=== PATIENT | female | born 1980 | race African-American/Black ===

== ENCOUNTER 2016-11-06 10:16 | Emergency (ER) | payer MEDICAID ==
[~2016-11-06] VITALS: Ht 175.3 cm; Wt 74.8 kg
[~2016-11-06 10:16] MED LIST: ALBUTEROL SULF8.5 GM INH; AMOXICILLIN500 M1 PO; CLINDAMYCIN HC150 MG ORAL; CLINDAMYCIN HC300 MG PO; CODEINE 30MG TA30 MG PO; CYCLOBENZAPRINE10 MG ORAL; DIPHENHYDRAMINE25 M1 ORAL; IBUPROFEN600 MG ORAL; NORCO 5-325 TA1 EACH ORAL; SILVADENE CREAM50 GM TOP; VICODIN 5-5001 EACH PO; ZOFRAN8 MG PO
[2016-11-06] MEDS ORDERED: NKM (10:34)
[2016-11-06 10:58] VITALS: BP 119/63
[2016-11-06] MEDS ORDERED: PREDNISONE20 MG ORAL (11:06)
[2016-11-06] MEDS ORDERED: ZYRTEC10 MG ORAL (11:06)
[2016-11-06] MEDS ORDERED: BACTRIM DS TAB1 EAC1 ORAL (11:06)
--- NOTE | 2016-11-06 11:20 | Emergency Room Report ---
History of Present Illness General Chief Complaint: General Complaint Source: Patient Present Illness HPI Patient presents with complaints of rash She feels that she was bit by bedbugs She feels that she saw the insects in the bed This happened on initially Patient has noticed increased redness on the left upper thigh Other insect bites are localized to the right leg and upper arms Denies any chest pressures of breath denies any dysuria frequency Denies any bodyaches Allergies: Coded Allergies: PENICILLINS (Verified Allergy, Mild, Hives, 04/15/12) Patient History Past Medical History: see triage record Pertinent Family History: none Last Menstrual Period: 10/19/15 Now: No Reviewed Nursing Documentation: PMH: Agreed, PSxH: Agreed Nursing Documentation-PMH Hx Hypertension: No - sciatica Review of Systems All Other Systems: negative except mentioned in HPI Physical Exam Vital Signs Date Time Temp Pulse Resp B/P Pulse Ox O2 Delivery O2 Flow Rate FiO2 11/06/16 10:28 98.6 72 16 113/67 99 Room Air Sp02 EP Interpretation: reviewed, normal General Appearance: well appearing, no apparent distress Head: normocephalic, atraumatic Eyes: bilateral eye EOMI, bilateral eye PERRL ENT: hearing grossly normal, normal pharynx Neck: full range of motion, supple Respiratory: lungs clear, normal breath sounds, no rhonchi Cardiovascular #1: regular rate, rhythm Gastrointestinal: non tender, soft Musculoskeletal: normal inspection Neurologic: alert, oriented x3, responsive Skin: other - Several areas of small raised erythematous lesions, specifically with area of erythema on the left upper thigh, with surrounding mild erythema which appears to be early cellulitis, no obvious streaking Lymphatic: no adenopathy Medical Decision Making Diagnostic Impression: Primary Impression: insect bite Additional Impression: cellulitis ER Course Also the areas appear to be fairly well localized however the area on the left upper thigh does appear to have secondary cellulitis Patient does not appear systemic does not appear septic or toxic and will be initially trialed on oral antibiotics Last Vital Signs Date Time Temp Pulse Resp B/P Pulse Ox O2 Delivery O2 Flow Rate FiO2 11/06/16 10:58 98.1 72 18 119/63 98 Room Air Status: unchanged Disposition: HOME, SELF-CARE Condition: Stable Scripts Cetirizine Hcl* (ZYRTEC*) 10 Mg Tablet 10 MG ORAL DAILY, #12 TAB 0 Refills Prov: STEVE WEN D.O. 11/06/16 Prednisone* (PREDNISONE*) 20 Mg Tablet 20 MG ORAL BID, #6 TAB Prov: STEVE WEN D.O. 11/06/16 Trimethoprim/Sulfamethoxazole 160/800* (BACTRIM DS TABLET*) 1 Each Tablet 1 TAB ORAL Q12H, #14 TAB 0 Refills Prov: STEVE WEN D.O. 11/06/16 Referrals: [facility],REFERRING (PCP) Patient Instructions: Cellulitis, [id number], Insect Bite, [id number] Additional Instructions: Patient is provided with the discharge instructions notified to follow up with primary doctor in the next 2-3 days otherwise return to the er with any worsening symptoms. Please note that this report is being documented using [employer] technology. This can lead to erroneous entry secondary to incorrect interpretation by the dictating instrument. STEVE WEN D.O. Nov 06, 2016 11:20
[2016-11-06 11:24] VITALS: BP 98/60
== END 2016-11-06 11:26 | disposition home or self-care (01) ==
LOC: EMR 10:42
DX: S70.362A Insect bite (nonvenomous), left thigh, initial encounter (principal); L03.116 Cellulitis of left lower limb; S80.861A Insect bite (nonvenomous), right lower leg, initial encounter; S40.861A Insect bite (nonvenomous) of right upper arm, initial encounter; Z88.0 Allergy status to penicillin; M54.30 Sciatica, unspecified side; W57.XXXA Bitten or stung by nonvenomous insect and other nonvenomous arthropods, initial encounter; Y93.9 Activity, unspecified; Y92.9 Unspecified place or not applicable
CPT/HCPCS: 99284